=== PATIENT | female | born 1980 | race Native Hawaiian/Other Pacific Islander ===

== ENCOUNTER 2016-12-09 20:14 | Emergency (ER) | payer OTHER ==
[~2016-12-09] VITALS: Ht 149.9 cm; Wt 56.7 kg
[~2016-12-09 20:14] MED LIST: ALBU6.7H IH; DESL5TAB PO; EPIN0.3P3 IJ; FLUT9.9S NS; MOME13HF2 IH; MOME17SP NS; MONT10TA22 PO; PRED2.5T PO; RANI150C4 PO; SERT25TA5 PO
--- NOTE | 2016-12-09 22:10 | NUR ---
Pt to room, c/o cough, fever and bodyaches for 3 days. Pt sts she has a productive cough with green phlem. Lungs CTA, resp even and unlabored. No obvious signs of distress. Pt seen by MD. Pt stable for discharge per MD. Pt given ACI. Pt verbalized understanding of dc instructions. Pt ambulated out of er with steady gait.
[2016-12-10 00:15] VITALS: BP 122/68
== END 2016-12-09 22:10 | disposition home or self-care (01) ==
LOC: ER 20:18
DX: B34.9 Viral infection, unspecified (principal); F32.9 Major depressive disorder, single episode, unspecified; F43.10 Post-traumatic stress disorder, unspecified; J45.909 Unspecified asthma, uncomplicated; Z88.8 Allergy status to other drugs, medicaments and biological substances; Z91.018 Allergy to other foods
CPT/HCPCS: 99283; A4663

== ENCOUNTER 2017-04-14 13:42 | Emergency (ER) | payer OTHER ==
[~2017-04-14] VITALS: Ht 147.3 cm; Wt 57.2 kg
--- NOTE | 2017-04-14 14:10 | NUR ---
Patient discharged to home in stable conditon. Written and verbal after care instructions given. Patient verbalizes understanding of instructions.
== END 2017-04-14 14:11 | disposition home or self-care (01) ==
LOC: ER 13:42
DX: J02.9 Acute pharyngitis, unspecified (principal); J45.909 Unspecified asthma, uncomplicated; Z91.018 Allergy to other foods
CPT/HCPCS: 99282; A4663

== ENCOUNTER 2017-05-02 11:32 | Emergency (ER) | payer OTHER ==
[~2017-05-02] VITALS: Ht 147.3 cm; Wt 57.2 kg
--- NOTE | 2017-05-02 12:00 | NUR ---
DR CHAPIN AT THE BEDSIDE FOR EVAL AND EXAM.
[2017-05-02] MEDS ORDERED: BENZONATATE 100 MG CAPSULE PO ONE (12:15)
[2017-05-02] MEDS ORDERED: BENZONATATE 100 MG CAPSULE ONE (12:27)
[2017-05-02 12:30] VITALS: BP 110/76
--- NOTE | 2017-05-02 12:30 | NUR ---
Patient discharged to home in stable conditon. Written and verbal after care instructions given. Patient verbalizes understanding of instructions.
== END 2017-05-02 12:31 | disposition home or self-care (01) ==
LOC: ER 11:32
DX: J04.0 Acute laryngitis (principal); J45.909 Unspecified asthma, uncomplicated; Z88.8 Allergy status to other drugs, medicaments and biological substances; Z91.018 Allergy to other foods
CPT/HCPCS: 99283; A4663

== ENCOUNTER 2017-10-12 10:34 | Emergency (ER) | payer OTHER ==
[~2017-10-12] VITALS: Ht 149.9 cm; Wt 59.0 kg
[2017-10-12] MEDS ORDERED: BECL8.7A6 IH (10:45)
[2017-10-12] MEDS ORDERED: FAMO-132 PO (10:45)
--- NOTE | 2017-10-12 10:55 | NUR ---
Patient discharged to home in stable conditon. Written and verbal after care instructions given. Patient verbalizes understanding of instructions.PT WALKS IN STEADT GAIT
== END 2017-10-12 10:56 | disposition home or self-care (01) ==
LOC: ER 10:34
DX: S80.211A Abrasion, right knee, initial encounter (principal); S80.212A Abrasion, left knee, initial encounter; J45.909 Unspecified asthma, uncomplicated; Z88.8 Allergy status to other drugs, medicaments and biological substances; Z91.018 Allergy to other foods; Z79.51 Long term (current) use of inhaled steroids; Z79.899 Other long term (current) drug therapy; V19.9XXA Pedal cyclist (driver) (passenger) injured in unspecified traffic accident, initial encounter; Y93.55 Activity, bike riding; Y92.89 Other specified places as the place of occurrence of the external cause; Y99.8 Other external cause status
CPT/HCPCS: 99281; A4663

== ENCOUNTER 2019-06-04 19:05 | Emergency (ER) | payer OTHER ==
[~2019-06-04] VITALS: Ht 149.9 cm; Wt 61.2 kg
[~2019-06-04 19:05] MED LIST changes: -ALBU6.7H IH; +ALBU6.7H9 IH; +BECL8.7A6 IH; +FAMO-132 PO; -MOME13HF2 IH; -MOME17SP NS; -RANI150C4 PO; -SERT25TA5 PO
[2019-06-04 20:03] VITALS: BP 124/80
--- NOTE | 2019-06-04 20:03 | NUR ---
Patient discharged to home in stable conditon. Written and verbal after care instructions given. Patient verbalizes understanding of instructions. Patient ambulated with stable gait.
--- NOTE | 2019-06-04 20:03 | NUR ---
Patient discharged to home in stable conditon. Written and verbal after care instructions given. Patient verbalizes understanding of instructions. Ambulated from the ER with stable gait. All belongings with patient.
== END 2019-06-04 20:04 | disposition home or self-care (01) ==
LOC: ER 19:07
DX: J45.909 Unspecified asthma, uncomplicated (principal); J02.8 Acute pharyngitis due to other specified organisms; B97.89 Other viral agents as the cause of diseases classified elsewhere; Z88.8 Allergy status to other drugs, medicaments and biological substances; Z91.018 Allergy to other foods; Z79.899 Other long term (current) drug therapy
CPT/HCPCS: 36415; 86403; 87070; A4663